=== PATIENT | female | born 1955 | race Caucasian/White ===

== ENCOUNTER 2016-12-04 11:01 | Emergency (ER) | payer BC ==
[~2016-12-04] VITALS: Ht 172.7 cm; Wt 60.4 kg
[~2016-12-04 11:01] MED LIST: PARO1TAB27 PO
[2016-12-04 11:03] VITALS: TEMP 36.3; Ht 172.7 cm; Wt 60.4 kg
[2016-12-04] MEDS ORDERED: LISD1CAP2 PO (11:33)
[2016-12-04] MEDS ORDERED: SERT-234 PO (11:33)
[2016-12-04] MEDS ORDERED: BUPR75TA8 PO (11:33)
[2016-12-04] MEDS ORDERED: XYLOCAINE 1%/SOD BICARB 20 ML VIAL INFIL STA (11:33)
[2016-12-04] MEDS ORDERED: ACETAMINOPHEN 325 MG TAB PO STA (11:58)
--- NOTE | 2016-12-04 12:13 | DIAGNOSTIC IMAGING REPORT ---
LEFT ELBOW 3 VIEWS HISTORY: Left elbow pain s/p fall COMPARISON: None. FINDINGS: No acute fracture identified. However, there is a left elbow effusion. No dislocation. IMPRESSION: No acute fracture or dislocation identified. However, there is a left elbow effusion which can be seen in the setting of an occult fracture. Follow-up radiograph in 2 weeks is recommended for confirmation. Electronically signed by: Phan Varela M.D. 12/04/2016 12:11 PM Dictated Date/Time: 12/04/2016 12:09 PM
--- NOTE | 2016-12-04 12:39 | EMERGENCY ROOM VISIT NOTE ---
ED Visit Note First contact with patient: 11:18 Chief Complaint: "Fell". History of Present Illness: This patient is a 61-year-old female who presents to the Emergency Department for evaluation of their left scalp laceration. Patient sustained the laceration while attempting to walk to her place of employment shortly prior to arrival. The patient states that she was walking from the parking garage and had a backpack and was trying to shift things around and actually fell forward falling and striking the left portion of her fourth and off of the concrete. She states that she has left scalp pain, left lateral neck pain and left elbow pain. She rates the headache as a 7/10, and notes that her neck feels stiff. She denies any balance troubles, loss of consciousness, vision changes and her tetanus is up-to-date. They report a moderate amount of bleeding initially. They report no loss of consciousness. Patient's Tetanus status is currently up-to-date. Medications: As noted below Allergies: Noted allergies PMH: No pertinent past medical history SHx: Patient is currently employed ROS: All pertinent positive and negative review of systems are appropriately documented in the History of Present Illness. Physical Exam: VITAL SIGNS - Vital signs and nursing notes were reviewed. GENERAL -61-year-old female appearing her stated age. Communicates well with provider and answers questions appropriately. SKIN - There is a 3 cm laceration noted left lateral for head extending into the hairline. The edges gape apart with traction. There is minimal active bleeding appreciated. No deep structures including vessels, musculature, or bony structures are appreciated. HEAD - Normocephalic. No Obrien's Sign or Raccoon's Eyes. No depressed skull fractures palpable. EYES - PERRL with EOMI bilaterally. Without subconjunctival hemorrhage. Palpebral conjunctiva pink and moist with no injection. EARS - No deformities of external structures noted on gross examination bilaterally. No hemotympanum present. No tympanic perforation noted. NOSE - Midline and without cyanosis. No epistaxis or clear watery discharge noted. Septum midline without deviation. No septal hematoma noted. No overlying ecchymosis noted. MOUTH/OROPHARYNX - Without perioral cyanosis. Tongue midline with equal elevation of palate bilaterally. No blood noted in the oropharynx. No tonsillar hypertrophy, erythema, or exudates noted. No dental fractures noted. NECK - FROM assessed. No tenderness to palpation over the cervical spinous processes. No cervical paraspinal muscle tenderness noted. LUNGS - Chest wall symmetric without accessory muscle use, intercostals retractions, or central cyanosis. Normal vesicular breath sounds CTA B/L. No wheezes, rales, or rhonchi appreciated. CARDIAC - RRR with S1/S2. No murmur, rubs, or gallops appreciated. EXTREMITIES - No gross deformities noted of the extremities. Stregnth WNL in UE /LE bilaterally. NEUROLOGIC - Cranial nerves II through XII grossly intact. Sensory intact to light touch throughout. Patellar reflexes +2/4. There is minimal tenderness to palpation overlying the left elbow region. There is full range of motion assessed. PSYCH - A&Ox3 and cooperates fully with examiner. Pt is very pleasant and interacts well with examiner. IMAGING: LEFT ELBOW 3 VIEWS HISTORY: Left elbow pain s/p fall COMPARISON: None. FINDINGS: No acute fracture identified. However, there is a left elbow effusion. No dislocation. IMPRESSION: No acute fracture or dislocation identified. However, there is a left elbow effusion which can be seen in the setting of an occult fracture. Follow-up radiograph in 2 weeks is recommended for confirmation. Electronically signed by: Phan Varela M.D. 12/04/2016 12:11 PM Dictated Date/Time: 12/04/2016 12:09 PM ED Course: Patient was seen and evaluated by myself. Patient had no focal neurological deficits. Patient's exam is otherwise unremarkable. Patient reports no visual disturbances, nausea, vomiting, or over-lethargy. The patient was offered a CT scan of the head, and after thorough discussion to include benefit versus risk the ultimate decision was made to not scan. Radiograph was obtained to the left elbow with results as above. Due to the potential for occult fracture she was splinted with Ortho-Glass, posterior long-arm to protect the elbow. Risks and benefits of performing primary wound closure versus no repair were discussed with the patient who verbalizes understanding. Verbal consent was obtained prior to performing the procedure. 4 cc of 1% buffered lidocaine was used to anesthetize the left for him laceration. The wound was cleansed and prepped in the typical sterile fashion utilizing normal saline and Betadine. The wound was sterilely draped. Once proper anesthetization was established, the wound was further examined and demonstrated a clean laceration. The wound was copiously irrigated with normal saline and Betadine. The wound was closed using 4, 6-0 nylon sutures with the wound edges being well approximated. Patient tolerated the procedure well. No complications were met. The wound was cleansed and dressed with a Bacitracin dressing. Patient educated on worrisome symptoms for return visit to the Emergency Department. Patient discharged to home in good condition. While here for her pain she was given Tylenol. In the evaluation and treatment of this patient, the following differential diagnoses were considered: Concussion, Contrecoup Injury, Brain Tumor, Depression, Encephalitis, Hypothyroidism, Meningitis, CVA, scalp laceration, elbow contusion, elbow fracture, TIA, Migraine, Cluster Headache, Intracranial Abnormality, Intracranial Hemorrhage, Subdural Hematoma, Subarachnoid Hemorrhage , Hydrocephalus. Current/Historical Medications Scheduled Lisdexamfetamine Dimesylate (Vyvanse), Unknown Dose PO DAILY Sertraline (Zoloft), 200 MG PO DAILY Miscellaneous Medications Bupropion Hcl (Wellbutrin), Unknown Dose PO Allergies Coded Allergies: No Known Allergies (Unverified , 12/04/16) Vital Signs Date Time Temp Pulse Resp B/P Pulse Ox O2 Delivery O2 Flow Rate FiO2 12/04/16 12:48 63 107/71 97 Room Air 12/04/16 11:03 36.3 83 18 138/87 96 Room Air Medications Administered Medications (Trade) Dose Ordered Sig/Claribel Route Start Time Stop Time Status Last Admin Dose Admin Lidocaine HCl (Buffered Lidocaine 1% Inj) 20 ml NOW STAT INFIL 12/04/16 11:33 12/04/16 11:35 DC 12/04/16 11:33 20 ML Acetaminophen (Tylenol Tab) 650 mg NOW STAT PO 12/04/16 11:58 12/04/16 12:00 DC 12/04/16 12:03 650 MG Departure Information Impression Primary Impression: Fall Additional Impressions: Forehead laceration Effusion, left elbow Neck muscle strain Closed head injury Dispostion Home / Self-Care Condition GOOD Referrals Yany Garnett M.D. (PCP) Rocky Main D.O. Patient Instructions My [facility] Additional Instructions Discharge Instructions: You have received 4 stitches on your left forehead. These are NOT dissolvable and WILL need to be removed by a health care provider in 5-7 days. You can return to the Emergency Department or contact your Primary Care Provider to have these lester removed. Proper wound care is essential for adequate wound healing and infection prevention. You can shower and clean the wound with soap and water. Do scour over the wound, pat dry with a towel. Do not submerse the wound until the lester have been removed. You can use an antibiotic ointment with a dressing over the wound for the next 3-4 days. After this time you may leave the wound dry and open to the air. If crust develops over the wound you can use a Q-tip to apply a 1:1 peroxide:water solution to clean the wound. Look for signs of infection of the wound including: increased pain, swelling, foul discharge, streaking, or increased temperature. If any of these are noticed you should return to the Emergency Department for further assessment and treatment. As with any laceration you may have received nerve damage to the surrounding tissues. This damage may or may not be permanent. For pain control, you can use the following [id number] medicines (if >12 yo): - Regular strength (325mg/tab) Tylenol (acetaminophen) 2 tabs every 4-6 hours as needed. Do not exceed 12 tablets in a 24 hour period. Avoid taking more than 4 grams (4000 mg) of Tylenol per day. This includes any other sources of acetaminophen you may take on a regular basis. - Regular strength (200 mg/tab) Advil (ibuprofen) 1-2 tabs every 4-6 hours as needed. Do not exceed a dose of 3200 mg per day. Return to the emergency department if your symptoms worsen despite treatment course outlined above. Please schedule a follow-up with your family doctor regarding today's visit. Please call them later today to schedule follow-up. ELBOW: You have been treated in the Emergency Department for Elbow Pain, after a fall with a joint effusion which is concerning for occult fracture. If this is a recent injury (<24 hrs), ice can be applied to the area of pain for the first 3 days to help decrease pain and inflammation. You have been provided the number for an Orthopaedic Surgeon. You should call this number as soon as possible to establish a follow-up visit from today's Emergency Department visit. (Dr. Main) Keep the sling/splint in place until evaluated by Orthopedics. Return to the Emergency Department if your current symptoms worsen despite treatment course outlined above, or if you develop any of the following symptoms : intractable pain despite aforementioned treatment course or new onset of numbness or tingling of the arm. Problem Qualifiers
[2016-12-04 12:48] VITALS: BP 107/71; PULSE 63; O2SAT 97
== END 2016-12-04 13:09 | disposition home or self-care (01) ==
LOC: C.EDB 11:02 → C.EDD 13:09
DX: S01.81XA Laceration without foreign body of other part of head, initial encounter (principal); M25.422 Effusion, left elbow; S16.1XXA Strain of muscle, fascia and tendon at neck level, initial encounter; W18.00XA Striking against unspecified object with subsequent fall, initial encounter

== ENCOUNTER 2016-12-11 17:46 | Emergency (ER) | payer BC ==
[~2016-12-11] VITALS: Ht 172.7 cm; Wt 61.0 kg
[~2016-12-11 17:46] MED LIST changes: +BUPR75TA8 PO; +LISD1CAP2 PO; -PARO1TAB27 PO; +SERT-234 PO
[2016-12-11 17:48] VITALS: TEMP 36.4; Ht 172.7 cm; Wt 61.0 kg
--- NOTE | 2016-12-11 18:04 | EMERGENCY ROOM VISIT NOTE ---
ED Visit Note First contact with patient: 17:54 CHIEF COMPLAINT: Suture removal This patient returns to the ED today for removal of sutures that were placed by myself 7 days ago. There has been no swelling, redness, or drainage from the wound. The patient feels like the laceration is healing well. REVIEW OF SYSTEMS: Head: No headache, injury or neck pain. Skin: No rash, new lesions, or masses. General: No fever or chills, fatigue, loss of appetite , or significant recent weight gain or loss. PMH: The patient is healthy; there is no significant medical or surgical history. SOCIAL HISTORY: Patient lives at home. PHYSICAL EXAM: Vital Signs: Reviewed Nurse's notes. There is a sutured wound on the right temporal region with no signs of infection. There is no erythema, swelling, or tenderness. EMERGENCY DEPARTMENT COURSE: The sutures were removed without any difficulty and there was no separation of the wound edges. DIAGNOSIS: Healing laceration and suture removal Current/Historical Medications Scheduled Lisdexamfetamine Dimesylate (Vyvanse), Unknown Dose PO DAILY Sertraline (Zoloft), 200 MG PO DAILY Miscellaneous Medications Bupropion Hcl (Wellbutrin), Unknown Dose PO Allergies Coded Allergies: No Known Allergies (Unverified , 12/04/16) Vital Signs Date Time Temp Pulse Resp B/P Pulse Ox O2 Delivery O2 Flow Rate FiO2 12/11/16 18:09 67 18 96 12/11/16 17:48 36.4 74 16 104/71 96 Departure Information Impression Primary Impression: Encounter for removal of sutures Dispostion Home / Self-Care Condition GOOD Referrals Yany Garnett M.D. (PCP) Patient Instructions My [facility] Additional Instructions DISCHARGE INSTRUCTIONS AND TREATMENT: Wash any remaining crusts off of the wound today and resume your normal activities. As we discussed in regard to the elbow please feel free to call the orthopedic group. Please return to the emergency department with any new/concerning symptoms.
[2016-12-11 18:09] VITALS: BP 112/73; PULSE 67; O2SAT 96
== END 2016-12-11 18:10 | disposition home or self-care (01) ==
LOC: C.EDB 17:47 → C.EDD 18:10
DX: S01.91XA Laceration without foreign body of unspecified part of head, initial encounter (principal); X58.XXXA Exposure to other specified factors, initial encounter